=== PATIENT | male | born 1925 | race Caucasian/White ===

== ENCOUNTER → 2016-10-12 | Outpatient (CLI) | payer MEDICARE ==
--- NOTE | 2016-10-12 10:10 | MRI ---
EXAM DESCRIPTION: Lumbar Spine w/o Contrast CLINICAL HISTORY: LUMBAR RADICULOPATHY bilateral leg pain and numbness COMPARISON: Lumbar spine dated 26 January 2016 TECHNIQUE: Multi plantar multi sequence non contrast imaging. FINDINGS: There is good alignment of the lumbar spine. An old compression fracture of T12 is observed. A large simple cyst is observed in the lateral aspect of the right kidney. L1-2: Unremarkable. L2-3: Unremarkable. L3-4: Facet joint arthritis is observed. No disc bulge or disc herniation is seen. Mild right neural foraminal narrowing is observed. L4-5: No disc bulge or disc herniation is seen. Facet joint arthritis and hypertrophy are are observed. There is mild bilateral neural foraminal narrowing. Some posterior ligamentous hypertrophy is observed resulting in a mild spinal stenosis. L5-S1: The disc is desiccated. No significant disc bulge or disc herniation is seen. Mild facet joint arthritis and hypertrophy are observed with minimal bilateral neural foraminal encroachment. IMPRESSION: 1. 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 There is also some posterior ligamentous hypertrophy resulting in a mild spinal stenosis.. 2. Facet joint arthritis is observed at the L3-4 and L5-S1 levels with mild neural foraminal encroachment. Electronically signed by: Bandar Valdes MD 10/12/2016 10:09 AM CDT Workstation: [employer]
== END ==
LOC: MRI 07:57
PROVIDERS: ATTEND Orthopaedic Surgery
DX: M54.16 Radiculopathy, lumbar region (principal); M46.86 Other specified inflammatory spondylopathies, lumbar region

== ENCOUNTER → 2016-12-06 | Outpatient (CLI) | payer MEDICARE ==
--- NOTE | 2016-12-06 16:29 | CT ---
EXAM DESCRIPTION: Head CLINICAL HISTORY: 89 years, Male, AMS COMPARISON: None. FINDINGS: Unenhanced images through the brain. This examination was performed according to our departmental dose optimization program, which includes automatic exposure control, adjustment of the MA and/or kV according to the patient size and/or use of iterative reconstruction technique. No intracranial hemorrhage or mass. Patient has bilateral craniotomy defects. There are scattered areas of low-attenuation bilaterally particularly on the right low convexity frontal temporal areas. These are probably chronic. Enlarged ventricles with moderate microischemic changes periventricular white matter. Mild ethmoid sinus mucosal thickening. IMPRESSION: 1. No intracranial hemorrhage or mass. No definite acute abnormality identified 2. Scattered bilateral areas of encephalomalacia more on the right. These appear to be associated regions prior craniotomy. Correlation recommended with possible MRI study for more detailed characterization, if indicated 3. Extensive microischemic changes periventricular white matter Electronically signed by: Flaco Matta MD 12/06/2016 4:28 PM CDT
--- NOTE | 2016-12-07 08:08 | RAD ---
EXAM DESCRIPTION: Elbow,Left 2 Views CLINICAL HISTORY: 89 years Male, PAIN IN LEFT ELBOW COMPARISON: None. FINDINGS: 3 views of the left elbow show extensive postoperative changes in the left humerus distally without loosening or other hardware complication. There is no acute fracture or malalignment. Is an old healed distal humeral fracture and possibly also an old healed proximal left radial fracture. No acute fracture or malalignment. Olecranon spurring is noted in the insertion site of the triceps tendon with a suture anchor at the same location. IMPRESSION: Postoperative, degenerative and posttraumatic changes, but no acute left elbow abnormality. Electronically signed by: Ashish Johansen MD 12/07/2016 8:07 AM CDT Workstation: [facility]ICOShareholder InSiteAUGUST[facility]
--- NOTE | 2016-12-07 08:09 | RAD ---
EXAM DESCRIPTION: Shoulder,Right 2 or More Views CLINICAL HISTORY: 89 years Male, PAIN IN RIGHT SHOULDER COMPARISON: None. FINDINGS: 2 views of the right shoulder show postoperative changes related previous reverse right shoulder arthroplasty. No loosening or other hardware complication. No acute fracture or malalignment. The soft tissues are unremarkable. IMPRESSION: Uncomplicated postoperative changes, otherwise unremarkable exam. Electronically signed by: Ashish Johansen MD 12/07/2016 8:08 AM CDT Workstation: [email or web address]
--- NOTE | 2016-12-07 08:10 | RAD ---
EXAM DESCRIPTION: Sacrum Coccyx CLINICAL HISTORY: 89 years Male, OTHER SPECIFIED DORSOPATHIES, LUMBOSACRAL COMPARISON: None. FINDINGS: 3 views of the sacrum and coccyx show generalized bony demineralization without displaced sacral or coccygeal fracture. There are degenerative changes in the lumbar spine at several levels. The sacroiliac joint spaces are fairly well-maintained. Vascular calcifications are noted. IMPRESSION: Generalized bony demineralization, degenerative changes and vascular calcifications, but no acute abnormality. Electronically signed by: Ashish Johansen MD 12/07/2016 8:09 AM CDT Workstation: [facility]
== END | disposition home or self-care (01) ==
LOC: CT 15:04
PROVIDERS: ATTEND Family Medicine
DX: R41.82 Altered mental status, unspecified (principal); R41.9 Unspecified symptoms and signs involving cognitive functions and awareness

== ENCOUNTER 2016-12-26 14:27 | Emergency (ER) | payer MEDICARE ==
[2016-12-26] MEDS ORDERED: LIDOCAINE 2 % GEL 5 ML TUBE TOP ONE (14:44)
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
--- NOTE | 2016-12-26 16:05 | RAD ---
EXAM: Two view(s) of the right shoulder. INDICATION: Pain. COMPARISON: None. FINDINGS: No acute fracture or dislocation. There are changes of a right shoulder arthroplasty with no periprosthetic lucencies. No large soft tissue swelling. IMPRESSION: 1. No acute fracture. Electronically signed by: Doug Lott MD 12/26/2016 4:03 PM CDT Workstation: [employer]
--- NOTE | 2016-12-26 16:05 | RAD ---
EXAM: Two view(s) of the left shoulder. INDICATION: Pain. COMPARISON: None. FINDINGS: No acute fracture or dislocation. There is an old healed fracture involving the proximal humerus. Old healed left-sided rib fractures are noted. There are calcifications around the humeral head, likely related to rotator cuff tendinopathy. No large soft tissue swelling. IMPRESSION: 1. No acute fracture. Electronically signed by: Doug Lott MD 12/26/2016 4:03 PM CDT Workstation: [employer]
--- NOTE | 2016-12-26 16:14 | CT ---
EXAM: CT head without contrast. INDICATION: Head injury. TECHNIQUE: Contiguous axial CT images of the brain. Intravenous contrast: Absent. DLP 870 mGy-cm. This exam was performed according to our departmental dose-optimization program, which includes automated exposure control, adjustment of the mA and/or kV according to patient size and/or use of iterative reconstruction technique. COMPARISON: 12/06/2016. FINDINGS: Since the previous examination, there has been cortical hemorrhage along the right parietal subacute infarct. There are chronic infarcts involving the bifrontal lobes, scott radiata, and right cerebellum. There is no midline shift, herniation, hydrocephalus, or extra-axial fluid collection. The paranasal sinuses and mastoid air cells are clear. There is an acute fracture IMPRESSION: Cortical hemorrhage along a right parietal subacute infarct. No midline shift, herniation, or hydrocephalus Electronically signed by: Doug Lott MD 12/26/2016 4:12 PM CDT Workstation: [id number]
[2016-12-26] MEDS ORDERED: TETANUS,DIPHTHERIA,PERTUSSIS 1 EA SYG IM ONE ×2 (17:07→18:54)
[2016-12-26] MEDS ORDERED: fentaNYL CITRATE INJ 50 MCG/ML AMP IV ONE (17:52)
[2016-12-26 19:31] VITALS: BP 182/74; TEMP 97.1; O2SAT 97
== END 2016-12-26 19:25 | disposition short-term general hospital (02) ==
LOC: ER 14:27
DX: S01.01XA Laceration without foreign body of scalp, initial encounter (principal); I63.9 Cerebral infarction, unspecified; Z88.6 Allergy status to analgesic agent; Z88.8 Allergy status to other drugs, medicaments and biological substances; J44.9 Chronic obstructive pulmonary disease, unspecified; I10 Essential (primary) hypertension; Z23 Encounter for immunization; Z87.891 Personal history of nicotine dependence; V86.59XA Driver of other special all-terrain or other off-road motor vehicle injured in nontraffic accident, initial encounter; Y92.015 Private garage of single-family (private) house as the place of occurrence of the external cause
CPT/HCPCS: 36415; 70450; 73030; 80053; 85025; 85610; 90471; 93005; J3010

== ENCOUNTER 2017-01-25 11:42 | Observation (INO) | payer MEDICARE ==
[2017-01-25] MEDS ORDERED: SODIUM PHOS/BIPHOS ENEMA ADULT 133 ML BTTL PR ONE (12:33)
[2017-01-25] MEDS ORDERED: BISACODYL SUPPOSITORY 10 MG PR ONE ×3 (12:35→14:10)
[2017-01-25] MEDS ORDERED: DOCUSATE SODIUM 100 MG CAP PO ONE (12:35)
[2017-01-25] MEDS ORDERED: PEG-ELECTROLYTE 4,000 ML BTTL PO SCH (13:00)
--- NOTE | 2017-01-25 13:09 | RAD ---
EXAM DESCRIPTION: Abdomen 1 View CLINICAL HISTORY: CONSTIPATION COMPARISON: None FINDINGS: Single frontal view the abdomen. Moderate amount of formed stool is demonstrated within the rectal colon/rectal vault. No other significant amount of formed stool is demonstrated throughout the colon. Bowel gas pattern is nonobstructive. No gross free intraperitoneal gas. No organomegaly is discernible. Osteopenia/osteoporosis. IMPRESSION: Mild constipation. Electronically signed by: Michel Hemphill MD 01/25/2017 1:08 PM CDT
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
[2017-01-25] MEDS ORDERED: SODIUM CHLORIDE 0.9% (FLUSH) 10 ML SYG IV PRN (20:56)
[2017-01-25] MEDS ORDERED: ALBUTEROL SULFATE 2.5 MG/3 ML VIAL NEB PRN (20:57)
[2017-01-25] MEDS ORDERED: ACETAMINOPHEN 325 MG TAB PO PRN (20:57)
[2017-01-25] MEDS ORDERED: ONDANSETRON INJ 4 MG/2 ML VIAL IV PRN (20:57)
[2017-01-25] MEDS ORDERED: IV SET AND CAP CHANGE INJ INJ SCH (21:00)
[2017-01-25] MEDS ORDERED: NON-FORMULARY MEDICATION 1 EA MIS (Pravastatin Sodium [Pravachol] 40 MG) PO SCH (21:00)
[2017-01-25] MEDS ORDERED: PRAVASTATIN SODIUM 20 MG TAB ONE (21:14)
[2017-01-25] MEDS: traMADol HCL 50 MG TAB PO PRN (21:23)
[2017-01-25] MEDS: ALPRAZolam 0.5 MG TAB PO SCH (21:23)
[2017-01-25] MEDS: DOCUSATE SODIUM 100 MG CAP PO SCH (21:23)
[2017-01-25] MEDS: SODIUM CHLORIDE 0.9% (FLUSH) 10 ML SYG IV SCH (21:26)
[2017-01-25] MEDS ORDERED: PANTOPRAZOLE SODIUM IV 40 MG VIAL IV SCH (21:30)
[2017-01-25] MEDS: SODIUM CHLORIDE 0.9% 1000ML 1,000 ML IVS PRN (21:34)
[2017-01-25] MEDS ORDERED: PYRETHRINS-PIPERONYL BUTOXIDE 1 APPLIC BTTL TOP ONE (22:33)
[2017-01-26] MEDS ORDERED: LISINOPRIL 10 MG TAB ONE (07:20)
[2017-01-26] MEDS: ALBUTEROL SULFATE 2.5 MG/3 ML VIAL NEB SCH ×4 (09:02→19:56)
[2017-01-26] MEDS: amLODIPine BESYLATE 5 MG TAB PO SCH (09:13)
[2017-01-26] MEDS: DOCUSATE SODIUM 100 MG CAP PO SCH ×2 (09:13→20:20)
[2017-01-26] MEDS: LISINOPRIL 10 MG TAB PO SCH (09:13)
[2017-01-26] MEDS: SODIUM CHLORIDE 0.9% (FLUSH) 10 ML SYG IV SCH ×2 (09:14→20:21)
[2017-01-26] MEDS: SODIUM CHLORIDE 0.9% 1000ML 1,000 ML IVS PRN (12:33)
[2017-01-26] MEDS: traMADol HCL 50 MG TAB PO PRN ×2 (19:29→21:54)
[2017-01-26] MEDS: ALPRAZolam 0.5 MG TAB PO SCH (20:20)
[2017-01-26] MEDS ORDERED: PANTOPRAZOLE SODIUM IV 40 MG VIAL IV SCH (21:00)
[2017-01-26] MEDS ORDERED: PRAVASTATIN SODIUM 20 MG TAB PO SCH (21:00)
--- NOTE | 2017-01-26 21:46 | PN ---
DATE: 01/26/17 SUPERVISING PHYSICIAN: Richard Marsh M.D. SUBJECTIVE: The patient is sitting up on the side of his bed. He says that he has had multiple bowel movements but they stopped earlier today and he feels like he is "cleaned out." He does not feel much like eating, but he has no complaints of chest pain, shortness of breath, nausea or vomiting. It was reported that the patient had some bugs crawling on him last night and he was given a Permethrin bath. Under examination of the bugs, it looked like they were some sort of gnat and no bugs were reportedly seen today in the patient's room. OBJECTIVE: VITAL SIGNS: He is afebrile, heart rate 78, blood pressure 121/61, respiratory rate 17, O2 sat is 90%. RESPIRATORY: Essentially clear to auscultation bilaterally. CARDIAC: Regular rate and rhythm. ABDOMEN: Soft, nondistended, non-tender. Bowel sounds are positive. EXTREMITIES: No cyanosis , clubbing or edema. NEUROLOGIC: He is awake, alert and oriented times three. LABORATORY: WBCs 6.8, hemoglobin 10.7, hematocrit 32.1. Chemistries are basically within normal limits. His second stool occult blood was negative. All other labs and films have been reviewed via the EMR. ASSESSMENT: 1. Weakness most likely secondary to prolonged hospitalization and poor fluid and nutritional intake. 2. Constipation most likely due to opioid use. 3. Mild anemia. His stool for occult blood was positive in the Emergency Room but that was after he had had enemas and several laxatives, and he was extremely constipated. His second stool for occult blood was negative and his H&H has stabilized. 4. Chronic obstructive pulmonary disease. 5. Hypertension. 6. History of multiple cerebrovascular accidents. PLAN: We will continue the present supportive care. Hopefully he can be discharged tomorrow. I will recheck an abdominal x-ray tomorrow. I think he had a good stool clean out yesterday. 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 He does have some people to check on him. He has not had any of his Oxycodone since he has been in the hospital. He has been on Tramadol and he has no complaints of pain as the Tramadol seems to be controlling it. Most of his constipation was most likely from the opioid use and if he has to go back on a narcotic, he may benefit from a stool softener or something for chronic opioid-induced constipation. I am not going to restart his Oxycodone when he is discharged. I will get him a close followup with Dr. Yanes. I will check an H&H in the morning. Otherwise we will continue to monitor the patient closely and followup as needed. Dr. Marsh is the collaborating physician available for consultation. [facility][id number] [facility]
--- NOTE | 2017-01-27 07:13 | RAD ---
EXAM DESCRIPTION: Abdomen Flat Upright CLINICAL HISTORY: 89 years Male, constipation COMPARISON: None. FINDINGS: The lung bases are unremarkable. No free subdiaphragmatic gas or intra-abdominal air-fluid level. Moderate amount of colonic stool and gas. Vascular calcifications are noted in the abdomen and pelvis. Several small calcifications project over the left kidney. There are degenerative changes in the lumbar spine at several levels. Postoperative changes in the right femur are only partially visualized. IMPRESSION: Moderate amount colonic stool and gas, but no small bowel obstruction, pneumoperitoneum or other acute intra-abdominal abnormality. Small calcifications projecting over the left kidney, differential considerations include superimposed vascular calcifications or left-sided nephrolithiasis. Electronically signed by: Ashish Johansen MD 01/27/2017 7:12 AM CDT
[2017-01-27] MEDS: amLODIPine BESYLATE 5 MG TAB PO SCH (08:45)
[2017-01-27] MEDS: LISINOPRIL 10 MG TAB PO SCH (08:45)
[2017-01-27] MEDS: DOCUSATE SODIUM 100 MG CAP PO SCH (08:45)
[2017-01-27] MEDS: SODIUM CHLORIDE 0.9% (FLUSH) 10 ML SYG IV SCH (08:45)
[2017-01-27] MEDS: ALBUTEROL SULFATE 2.5 MG/3 ML VIAL NEB SCH (08:49)
[2017-01-27] MEDS: traMADol HCL 50 MG TAB PO PRN ×2 (08:52→11:42)
[2017-01-27 11:09] VITALS: O2SAT 97
[2017-01-27 11:36] VITALS: BP 121/71; TEMP 98.2
--- NOTE | 2017-01-27 13:56 | DS ---
SUPERVISING PHYSICIAN: Richard Marsh MD DISCHARGE DIAGNOSIS: 1. Weakness most likely secondary to prolonged hospitalization and poor fluid and nutritional intake. 2. Constipation most likely due to opioid use. 3. Mild anemia. His stool for occult blood was positive in the Emergency Room but that was after he had had enemas and several laxatives, and he was extremely constipated. His second stool for occult blood was negative and his H&H has stabilized. 4. Chronic obstructive pulmonary disease. 5. Hypertension. 6. History of multiple cerebrovascular accidents. HISTORY OF PRESENT ILLNESS: This is an 89-year-old male patient who was seen in the Emergency Room due to 5 to 7 days of increased weakness. About one month ago, the patient was sent to [facility] for cerebrovascular accident and was in [facility] for approximately two weeks and then he went to [facility]. He just recently returned home and over the last few days, he has just had increasing problems with weakness that has just progressively worsened. He is on pain medications and he has also had progressive problems with constipation. His son reported that he has just gotten weaker and weaker over the last few days. There were no neurological changes, but he just got to the point where he could not even get out of bed. 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 In the Emergency Room, he was found to be significantly constipated and was given an enema as well as some IV fluids and some other laxatives. He did have a bowel movement in the Emergency Room which was tested and found to be guaiac-positive. His labs showed him to be mildly anemia with a hemoglobin of 11.6 and hematocrit 34.6, WBC 8.9. Chemistries were basically within normal limits. His abdominal x-ray per radiologic interpretation showed some constipation and due to his increasing weakness as well as fairly significant constipation, I was called to admit the patient for observation. HOSPITAL COURSE: After the patient was admitted for observation, his constipation resolved. His abdominal x-ray this morning per radiologic interpretation continues to show a moderate amount of colonic stool and gas, but no small bowel obstruction, pneumoperitoneum or other acute intraabdominal abnormalities. His vital signs have been stable and he has been afebrile. His lab studies show a stable hemoglobin and hematocrit of 10.2 and 30.5 this morning. He had initial stool occult blood that was positive in the Emergency Room, but he was given aggressive clean-out and his subsequent stool for occult blood was negative. He was evaluated by physical therapy and was felt safe to go home. We did not resume his oxycodone in the hospital because that may have contributed to his constipation. He was given Tramadol and Tramadol was effective for pain relief for him. He is to be discharged home in stable condition. DISCHARGE PLAN: The patient will be discharged home in stable condition. He is to discontinue his oxycodone and I have given him a prescription for Tramadol. I have also given him a small supply of Xanax as he was to have an appointment with Dr. Yanes several days ago to get his Xanax refilled and he will not see Dr. Yanes until 02/02/17 at 10 AM. He may benefit from aggressive treatment for his chronic constipation. As for now, I have told him to take several doses of Milk of Magnesia over the next couple of days. He is to return to the hospital or call Dr. Yanes's office for any further complications or problems. DISCHARGE MEDICATIONS: 1. Lisinopril. 2. Pravastatin. 3. Amlodipine. 4. Milk of Magnesia. 5. Tramadol. 6. Alprazolam. Dr. Marsh is the collaborating physician and available for consultation. #[id number] [facility]
[2017-01-27] MEDS ORDERED: PANTOPRAZOLE SODIUM TAB 40 MG PO SCH (16:30)
[2017-01-27] MEDS ORDERED: SODIUM CHLORIDE 0.9% (FLUSH) 10 ML SYG IV SCH (21:00)
== END 2017-01-27 12:30 | disposition home health service (06) ==
LOC: ER 11:42 → MS 15:20
PROVIDERS: ADMIT Nurse Practitioner Acute Care; ATTEND Nurse Practitioner Acute Care
DX: R53.1 Weakness (principal); K59.00 Constipation, unspecified; D64.9 Anemia, unspecified; J44.9 Chronic obstructive pulmonary disease, unspecified; I10 Essential (primary) hypertension; H35.30 Unspecified macular degeneration; Z86.73 Personal history of transient ischemic attack (TIA), and cerebral infarction without residual deficits; Z79.891 Long term (current) use of opiate analgesic; Z79.899 Other long term (current) drug therapy; Z88.6 Allergy status to analgesic agent; Z91.048 Other nonmedicinal substance allergy status; Z90.49 Acquired absence of other specified parts of digestive tract; Z98.42 Cataract extraction status, left eye; Z98.41 Cataract extraction status, right eye
CPT/HCPCS: 36415 ×4; 74000; 74010; 80048 ×2; 80053; 81001; 82270 ×2; 85014; 85018; 85025 ×2; 94640 ×5; 94760 ×7; 96361 ×2; 96374; 96376; 97162; 97530; 99284; G0378; G8978; G8979; G8980; J7030 ×2; J7611 ×5

== ENCOUNTER 2017-01-31 00:35 | Inpatient (IN) | payer MEDICARE ==
[2017-01-31] MEDS ORDERED: IPRATROPIUM/ALBUTEROL 3 ML VIAL NEB ONE ×2 (00:38→00:59)
--- NOTE | 2017-01-31 00:48 | ED.PDOC ---
History of Present Illness - General Chief Complaint: Respiratory Problem Stated Complaint: Shortness of breath Time Seen by Provider: 01/31/17 00:47 Source: patient, Vital Signs reviewed, EMS notes reviewed Exam Limitations: no limitations - History of Present Illness Initial Comments: Siva Beckwith 89 y/o male brought by ems after they were called by his daughter with sob/wheezing/lower backpain.On ems arrival was found laying in bed was given oxygen /nasal cannula and b-agonist nebulizer treatment.On his arrival at [facility] -er has audible wheezing in mild respiratory distress with oxygen saturation at 98% on non rebreather 02 then was given duoneb by nebulizer.He stated that vhe has history of copd in the past but not on maintenance medication Timing/Duration: 1-3 hours Severity: moderate Activities at Onset: none Possible Cause: occasional episodes Worsening Factors: nothing Associated Symptoms: pain - back, wheezing Respiratory Risk Factors: other - copd Allergies/Adverse Reactions: Allergies Codeine Allergy (Verified 01/31/17 00:42) Iodine Adverse Reaction (Verified 01/31/17 00:42) Other Causes itching Home Medications: Ambulatory Orders Lisinopril 20 mg PO DAILY #90 tab 01/23/14 Magnesium Hydroxide [Milk Of Magnesia] 30 ml PO Q8HR PRN 01/25/17 Pravastatin Sodium [Pravachol] 40 mg PO BEDTIME 01/25/17 amLODIPine BESYLATE [Norvasc] 5 mg PO DAILY 01/25/17 ALPRAZolam [Xanax] 0.5 mg PO BEDTIME #10 tab 01/27/17 Tramadol HCl 50 - 100 mg PO Q6H #20 tab 01/27/17 Review of Systems - Review of Systems Constitutional: States: no symptoms reported EENTM: States: no symptoms reported Respiratory: States: see HPI Cardiology: States: no symptoms reported Gastrointestinal/Abdominal: States: no symptoms reported Musculoskeletal: States: no symptoms reported Skin: States: no symptoms reported Neurological: States: no symptoms reported Past Medical History (General) - Patient Medical History Hx Seizures: No Hx Stroke: Yes Hx Dementia: No Hx Asthma: No Hx of COPD: Yes 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 Hx Congestive Heart Failure: No Hx Pacemaker: No Hx Hypertension: Yes Hx Thyroid Disease: No Hx Diabetes: No Hx Gastroesophageal Reflux: No Hx Renal Disease: No Hx Cancer: No Hx of HIV: No Hx Hepatitis C: No Hx MRSA: No Surgical History: other - shoulder - Vaccination History Hx Tetanus, Diphtheria Vaccination: Yes Hx Influenza Vaccination: No Hx Pneumococcal Vaccination: No - Social History Hx Tobacco Use: No Hx Chewing Tobacco Use: No Hx Alcohol Use: No Hx Substance Use: No Hx Substance Use Treatment: No Hx Depression: No Hx Physical Abuse: No Hx Emotional Abuse: No Hx Suspected Abuse: No - Activities of Daily Living Patient Lives Alone: Yes Eating (Feeding) Ability: Independent Toileting Ability: Independent - Female History Patient : No Family Medical History - Family History Mother Living Status: Hx Family Hypertension: Yes Father Living Status: Hx Family Cancer: Yes - leukemia Physical Exam - Physical Exam General Appearance: Alert, Obvious distress - mild Eyes, Ears, Nose, Throat Exam: normal ENT inspection, TMs normal, other - 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 Neck: non-tender, supple Respiratory: chest non-tender, no accessory muscle use, decreased breath sounds , wheezing Cardiovascular/Chest: regular rate, rhythm, no murmur Peripheral Pulses: radial,right: 2+, radial,left: 2+ Gastrointestinal/Abdominal: non tender, soft, no organomegaly Neurologic: no motor/sensory deficits, alert Skin Exam: normal color, warm/dry Progress - Progress Progress: 01/31/17 01:23 Vital Signs 01/31/17 01/31/17 00:43 00:46 Temperature 98.9 F Pulse Rate 94 H Pulse Rate [ 100 H Left Radial] Respiratory 32 H 23 Rate Blood Pressure 157/70 [Left Arm] O2 Sat by Pulse 94 L 97 Oximetry - Results/Orders Results/Orders: Laboratory Tests 01/31/17 01/31/17 01/31/17 01:25 01:25 01:25 WBC 8.5 RBC 4.40 L Hgb 12.1 L Hct 35.8 L MCV 81.3 MCH 27.5 MCHC 33.8 RDW 14.8 H Plt Count 182 MPV 8.0 Absolute Neuts (auto) 6.10 Absolute Lymphs (auto) 1.30 Absolute Monos (auto) 0.90 H Absolute Eos (auto) 0.20 Absolute Basos (auto) 0.00 Neutrophils % 71.5 Lymphocytes % 15.1 L Monocytes % 10.7 H Eosinophils % 2.4 Basophils % 0.3 Sodium 135 Potassium 4.1 Chloride 101 Carbon Dioxide 26 Anion Gap 12.1 BUN 13 Creatinine 0.92 BUN/Creatinine Ratio 14.1 Random Glucose 129 H Serum Osmolality 271.9 L Calcium 9.7 Total Bilirubin 0.4 AST 19 ALT 16 Alkaline Phosphatase 44 Troponin I < 0.02 B-Natriuretic Peptide Serum Total Protein 7.1 Albumin 4.3 Globulin 2.8 Albumin/Globulin Ratio 1.5 01/31/17 01:25 WBC RBC Hgb Hct MCV MCH MCHC RDW Plt Count MPV Absolute Neuts (auto) Absolute Lymphs (auto) Absolute Monos (auto) Absolute Eos (auto) Absolute Basos (auto) Neutrophils % Lymphocytes % Monocytes % Eosinophils % Basophils % Sodium Potassium Chloride Carbon Dioxide Anion Gap BUN Creatinine BUN/Creatinine Ratio Random Glucose Serum Osmolality Calcium Total Bilirubin AST ALT Alkaline Phosphatase Troponin I B-Natriuretic Peptide 53.2 Serum Total Protein Albumin Globulin Albumin/Globulin Ratio - EKG/XRAY/CT EKG: Sinus, no ST T wave changes Comments: heart rate 92 first degree av block XRAY: chest - no acute abnormalities Departure - Departure Clinical Impression: COPD exacerbation Time of Disposition: 02:21 Disposition: Admit Patient Departure Forms: Patient Portal Self Enrollment Referrals: Nadir Yanes MD [Primary Care Provider] - 1-2 Weeks Home Medications: Ambulatory Orders Lisinopril 20 mg PO DAILY #90 tab 01/23/14 Magnesium Hydroxide [Milk Of Magnesia] 30 ml PO Q8HR PRN 01/25/17 Pravastatin Sodium [Pravachol] 40 mg PO BEDTIME 01/25/17 amLODIPine BESYLATE [Norvasc] 5 mg PO DAILY 01/25/17 ALPRAZolam [Xanax] 0.5 mg PO BEDTIME #10 tab 01/27/17 Tramadol HCl 50 - 100 mg PO Q6H #20 tab 01/27/17 Decision To Admit - Decistion To Admit Decision to Admit Reason: Admit from ER Decision to Admit Date: 01/31/17 Decision to Admit Time: 02:18 - D/W Feli Christensen-ANP/Hospitalist
[2017-01-31] MEDS ORDERED: methylPREDNISolone SODIUM SUC 125 MG/2 ML VIAL IV ONE (00:56)
--- NOTE | 2017-01-31 01:24 | RAD ---
Clinical History : sob , MAIN Exam : Portable AP view of the chest 01/31/2017 12:53 AM CDT Comparisons : none Findings : The lungs are clear without focal consolidation or pleural effusion. The heart is normal in size. The mediastinal contours are distorted by patient rotation to the left . There are vascular calcifications along the aortic arch. The thoracic spine is age appropriate. There is right shoulder arthroplasty hardware.. There is a chronic left proximal humeral fracture. Limited evaluation of the upper abdomen demonstrates no gross abnormalities. Impression: Rotated exam, otherwise no acute cardiopulmonary disease. Electronically signed by: Sharonda Pickett MD 01/31/2017 1:23 AM CDT
[2017-01-31] MEDS: SODIUM CHLORIDE 0.9% 500ML 500 ML IVS PRN ×3 (01:34→16:04)
[2017-01-31] MEDS ORDERED: cefTRIAXone SODIUM 1 GM in SODIUM CHL 0.9% 50ML MIN-BAG+ 50 ML IVPB ONE (02:19)
[2017-01-31] MEDS ORDERED: SODIUM CHL 0.9% 50ML MIN-BAG+ 50 ML IVPB ONE (02:34)
[2017-01-31] MEDS ORDERED: cefTRIAXone SODIUM 1 GM VIAL ONE (02:34)
--- NOTE | 2017-01-31 02:58 | HP ---
SUPERVISING PHYSICIAN: Amilcar Casillas MD CHIEF COMPLAINT: Shortness of breath. HISTORY OF PRESENT ILLNESS: This is an 89-year-old male patient who has had some shortness of breath, coughing and upper respiratory like symptoms for at least 24 hours. He became so short of breath yesterday that he called EMS and they brought him to the Emergency Room. In the Emergency Room, he had audible wheezing and he was in respiratory distress. It was reported that his oxygen saturation had dropped as low as the mid-70s. He was given multiple breathing treatments and he does have a significant history of chronic obstructive pulmonary disease. He was actually in the hospital last week for constipation and some lower back pain as well as weakness. In the Emergency Room, his chest x-ray per radiologic interpretation showed rotated exam, otherwise no acute cardiopulmonary disease. His laboratory showed chemistries basically within normal limits with the exception of his glucose was high at 129, serum osmolality low at 271.9, troponin was negative. White count was 8.5 with hemoglobin 12.1 and hematocrit 35.8. Blood gas had a normal pH of 7.41 with bicarb 23.2, PO2 61, PCO2 38 with O2 saturation 94%. UA was basically within normal limits. He also complained of quite a bit of purulent sputum and he did give enough sputum for a culture. He was given steroids as well as Rocephin. I was called for hospital admission. PAST MEDICAL HISTORY: 1. Multiple concussions due to head trauma. 2. 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 3. Hypertension. 4. Chronic obstructive pulmonary disease. 5. Back pain. 6. Chronic constipation. 7. History of previous cerebrovascular accidents. 8. Chronic headaches due to number 1. PAST SURGICAL HISTORY: 1. Multiple bur holes due to head injuries. 2. Appendectomy. 3. Tonsillectomy and adenoidectomy. 4. Bilateral cataract removal. 5. Bilateral total knee arthroplasty. 6. Right shoulder replacement. 7. Right wrist surgery due to fracture. 8. Colonoscopy. CURRENT MEDICATIONS: Per the EMR and awaiting verification. ALLERGIES: CODEINE, IODINE. SOCIAL HISTORY: He is retired. He lives at [facility]. He denies any tobacco use. He occasionally drinks beer on a social basis only. He denies any illicit drug use. REVIEW OF SYSTEMS: GENERAL: Negative for fatigue, fever or weight changes. HEENT: Positive for blindness. Negative for sinus symptoms, ear pain or sore throat. RESPIRATORY: Positive for wheezing, coughing or shortness of breath. CARDIAC: Negative for chest pain, palpitations or tachycardia. GASTROINTESTINAL: Negative for constipation, abdominal pain. Negative for nausea, vomiting, diarrhea. GENITOURINARY: Negative for hematuria, dysuria or nocturia. NEUROLOGIC: Positive for chronic headaches. Negative for weakness, dizziness or seizures. PHYSICAL EXAMINATION: VITAL SIGNS: Afebrile. Heart rate 91. Blood pressure 126/65. Respiratory rate got as high as 32, but is now 18. O2 saturation 91%. GENERAL: This is an 89-year-old male patient who is lying in his hospital bed. He is in no acute distress. HEENT: Normocephalic, atraumatic. Oropharynx is clear. NECK: Supple without mass. RESPIRATORY: Scattered rhonchi throughout, somewhat diminished at the bases. He gets slightly tachypneic at times. CHEST: There is equal rise and fall of the chest with inspiration and expiration. CARDIOVASCULAR: Regular rate and rhythm. ABDOMEN: Soft, nondistended, nontender. Bowel sounds are positive. EXTREMITIES: No cyanosis, clubbing or edema. NEUROLOGIC: Awake, alert and oriented times three. LABORATORY: Labs and films are as per the history of present illness. ASSESSMENT: 1. Acute exacerbation of chronic obstructive pulmonary disease. 2. Hypoxia as noted on arterial blood gases with PO2 of 61. 3. History of chronic constipation. 4. Mild anemia. 5. Chronic obstructive pulmonary disease. 6. Hypertension. 7. History of multiple cerebrovascular accidents. 8. History of chronic headaches due to multiple head traumas in the past. PLAN: We will place the patient in observation. He will continue with his Rocephin as well as we will start azithromycin. Breathing treatments have been initiated. Good pulmonary hygiene has been ordered. I have ordered cultures on his blood, sputum and he also has a gram stain on his sputum. I have ordered Protonix for ulcer prophylaxis as well as Lovenox for DVT prophylaxis. Hopefully he can be discharged in the next day or two. Meanwhile, we will continue to monitor the patient closely and follow as needed. Dr. Casillas is the collaborating physician and available for consultation. #[id number] [facility]
[2017-01-31] MEDS ORDERED: traMADol HCL 50 MG TAB PO PRN (05:13)
[2017-01-31] MEDS ORDERED: ALBUTEROL SULFATE 2.5 MG/3 ML VIAL NEB PRN (05:20)
[2017-01-31] MEDS ORDERED: ENOXAPARIN SODIUM 40 MG/0.4 ML SYG SUBCU SCH (05:30)
[2017-01-31] MEDS: IV SET AND CAP CHANGE INJ INJ SCH (05:30)
[2017-01-31] MEDS ORDERED: SODIUM CHLORIDE 0.9% 250ML 250 ML ONE (05:34)
[2017-01-31] MEDS ORDERED: AZITHROMYCIN IV 500 MG VIAL IVPB ONE (05:35)
[2017-01-31] MEDS: AZITHROMYCIN IV 500 MG in SODIUM CHLORIDE 0.9% 250ML 250 ML IVPB SCH (05:49)
[2017-01-31] MEDS: traMADol HCL 50 MG TAB PO PRN ×4 (05:54→20:04)
[2017-01-31] MEDS ORDERED: PANTOPRAZOLE SODIUM IV 40 MG VIAL IV SCH (06:30)
[2017-01-31] MEDS: LISINOPRIL 10 MG TAB PO SCH (08:42)
[2017-01-31] MEDS: amLODIPine BESYLATE 5 MG TAB PO SCH (08:42)
[2017-01-31] MEDS: methylPREDNISolone SODIUM SUC 125 MG/2 ML VIAL IV SCH ×2 (08:42→16:03)
[2017-01-31] MEDS: IPRATROPIUM/ALBUTEROL 3 ML VIAL INH SCH ×4 (08:55→20:39)
[2017-01-31] MEDS ORDERED: PRAVASTATIN SODIUM 20 MG TAB ONE (19:50)
[2017-01-31] MEDS ORDERED: ALPRAZolam 0.5 MG TAB ONE (19:50)
[2017-01-31] MEDS: ALPRAZolam 0.5 MG TAB PO SCH (21:26)
[2017-01-31] MEDS: PRAVASTATIN SODIUM 20 MG TAB PO SCH (21:26)
[2017-02-01] MEDS ORDERED: SODIUM CHL 0.9% 50ML MIN-BAG+ 50 ML IVPB ONE (01:23)
[2017-02-01] MEDS ORDERED: cefTRIAXone SODIUM 1 GM VIAL ONE (01:23)
[2017-02-01] MEDS ORDERED: SODIUM CHLORIDE 0.9% 250ML 250 ML ONE (01:23)
[2017-02-01] MEDS ORDERED: PANTOPRAZOLE SODIUM TAB 40 MG PO ONE (01:23)
[2017-02-01] MEDS ORDERED: AZITHROMYCIN IV 500 MG VIAL IVPB ONE (01:24)
[2017-02-01] MEDS: SODIUM CHLORIDE 0.9% (FLUSH) 10 ML SYG IV PRN ×2 (01:29→05:43)
[2017-02-01] MEDS: cefTRIAXone SODIUM 1 GM in SODIUM CHL 0.9% 50ML MIN-BAG+ 50 ML IVPB SCH (01:30)
[2017-02-01] MEDS: methylPREDNISolone SODIUM SUC 125 MG/2 ML VIAL IV SCH ×3 (01:30→20:28)
[2017-02-01] MEDS: traMADol HCL 50 MG TAB PO PRN ×3 (03:32→16:25)
[2017-02-01] MEDS: AZITHROMYCIN IV 500 MG in SODIUM CHLORIDE 0.9% 250ML 250 ML IVPB SCH (05:42)
[2017-02-01] MEDS: PANTOPRAZOLE SODIUM TAB 40 MG PO SCH (05:42)
--- NOTE | 2017-02-01 07:04 | RAD ---
EXAM DESCRIPTION: Chest,2 Views CLINICAL HISTORY: copd COMPARISON: January 31, 2017 FINDINGS: The cardiomediastinal silhouette is unremarkable. Mild blunting of the right costophrenic angle suggests a tiny right-sided pleural effusion. No airspace consolidation or left-sided effusion is seen. Flattening of the hemidiaphragms is noted on the lateral view suggesting the possibility of COPD. Postoperative changes in the right shoulder are only partially visualized. There is an old healed or partially healed left humeral neck fracture. Several old healed left-sided rib fractures are also noted. No acute rib fracture or pneumothorax. IMPRESSION: Emphysematous changes and a possible tiny right-sided pleural effusion. Electronically signed by: Ashish Johansen MD 02/01/2017 7:03 AM CDT
[2017-02-01] MEDS: IPRATROPIUM/ALBUTEROL 3 ML VIAL INH SCH ×5 (08:30→20:19)
[2017-02-01] MEDS: ENOXAPARIN SODIUM 40 MG/0.4 ML SYG SUBCU SCH (09:06)
[2017-02-01] MEDS: amLODIPine BESYLATE 5 MG TAB PO SCH (09:06)
[2017-02-01] MEDS: LISINOPRIL 10 MG TAB PO SCH (09:06)
--- NOTE | 2017-02-01 17:55 | PN ---
DATE: 02/01/17 SUPERVISING PHYSICIAN: Amilcar Casillas M.D. SUBJECTIVE: The patient is lying in bed. He is very depressed. His family will not bring his phone or atmospheric drier tender up here. His was in town and did not come visit him. His son took his truck and he has not heard from him since. He complains of right shoulder pain as well as depression. He says he gets short of breath with any exertion, but he is somewhat better since yesterday. No complaints of chest pain, nausea or vomiting. OBJECTIVE: VITAL SIGNS: He is afebrile, heart rate has gotten as high as 107 but is now 84. Blood pressure 144/61, respiratory rate 20, O2 sat is 94%. RESPIRATORY: Essentially clear to auscultation bilaterally. He is diminished at the bases. CARDIAC: Regular rate and rhythm. ABDOMEN: Soft, nondistended, non-tender. Bowel sounds are positive. EXTREMITIES: No cyanosis, clubbing or edema. NEUROLOGIC: He is awake, alert and oriented times three, but he is very depressed. LABORATORY: WBC 9.5, hemoglobin has dropped to 10.2 and hematocrit is down to 30.3, neutrophils are 88.4%. Electrolytes are basically within normal limits although his glucose is elevated up to 152. Preliminary sputum culture shows normal lara at 24 hours. Sputum gram stain shows a few epithelial cells, many WBCs and many gram positive cocci in pair and chains. Preliminary urine culture shows an insignificant colony count of mixed lara. RADIOLOGY: Chest x-ray per radiology interpretation shows emphysematous changes and a possible tiny right pleural effusion. All other labs and films have been reviewed via the EMR. ASSESSMENT: 1. Acute exacerbation of chronic obstructive pulmonary disease. 2. Hypoxia as noted on arterial blood gases with PO2 of 61. 3. History of chronic constipation. 4. Mild anemia. 5. Chronic obstructive pulmonary disease. 6. Hypertension. 7. History of multiple cerebrovascular accidents. 8. History of chronic headaches due to multiple head traumas in the past. 9. Depression. PLAN: We will continue present supportive care. The patient has been changed to inpatient status. He will continue with his Rocephin and Azithromycin as his clinical picture has improved as far as his chronic obstructive pulmonary disease. I have tapered down his steroids. For some reason, there are no blood cultures done but we will continue to monitor his other cultures as they become available. I have started him on some Cymbalta. Maybe that will help with his shoulder pain as well as the depression. Tomorrow I will order an ambulation study to make sure he is safe to go home, or if he needs oxygen at home we can get that. Otherwise we will continue to monitor him closely and follow as needed. Dr. Casillas is the collaborating physician available for consultation. [facility][id number] [facility]
[2017-02-01] MEDS: DULoxetine HCL 30 MG CAP PO SCH (18:39)
[2017-02-01] MEDS ORDERED: methylPREDNISolone SODIUM SUC 125 MG/2 ML VIAL ONE (19:56)
[2017-02-01] MEDS: SODIUM CHLORIDE 0.9% (FLUSH) 10 ML SYG IV SCH (20:28)
[2017-02-01] MEDS: ALPRAZolam 0.5 MG TAB PO SCH (20:28)
[2017-02-01] MEDS: PRAVASTATIN SODIUM 20 MG TAB PO SCH (20:28)
[2017-02-02] MEDS ORDERED: SODIUM CHL 0.9% 50ML MIN-BAG+ 50 ML IVPB ONE ×2 (00:30→19:53)
[2017-02-02] MEDS ORDERED: cefTRIAXone SODIUM 1 GM VIAL ONE ×3 (00:30→19:54)
[2017-02-02] MEDS ORDERED: SODIUM CHLORIDE 0.9% 250ML 250 ML ONE ×2 (00:30→19:53)
[2017-02-02] MEDS ORDERED: AZITHROMYCIN IV 500 MG VIAL IVPB ONE ×2 (00:31→19:55)
[2017-02-02] MEDS: cefTRIAXone SODIUM 1 GM in SODIUM CHL 0.9% 50ML MIN-BAG+ 50 ML IVPB SCH (02:08)
[2017-02-02] MEDS: SODIUM CHLORIDE 0.9% (FLUSH) 10 ML SYG IV PRN (02:09)
[2017-02-02] MEDS: methylPREDNISolone SODIUM SUC 125 MG/2 ML VIAL IV SCH ×3 (05:20→20:45)
[2017-02-02] MEDS: AZITHROMYCIN IV 500 MG in SODIUM CHLORIDE 0.9% 250ML 250 ML IVPB SCH (05:25)
[2017-02-02] MEDS: PANTOPRAZOLE SODIUM TAB 40 MG PO SCH (06:15)
[2017-02-02] MEDS: IPRATROPIUM/ALBUTEROL 3 ML VIAL INH SCH ×4 (09:12→21:07)
[2017-02-02] MEDS: DULoxetine HCL 30 MG CAP PO SCH (09:54)
[2017-02-02] MEDS: LISINOPRIL 10 MG TAB PO SCH (09:54)
[2017-02-02] MEDS: amLODIPine BESYLATE 5 MG TAB PO SCH (09:54)
[2017-02-02] MEDS: ENOXAPARIN SODIUM 40 MG/0.4 ML SYG SUBCU SCH (09:54)
[2017-02-02] MEDS: SODIUM CHLORIDE 0.9% (FLUSH) 10 ML SYG IV SCH ×2 (09:55→20:46)
--- NOTE | 2017-02-02 13:25 | PN ---
SUPERVISING PHYSICIAN: Amilcar Casillas MD DATE: 02/02/17 SUBJECTIVE: The patient is sitting up on the side of the bed. He feels somewhat better than he did yesterday. He has no complaints of chest pain, nausea, vomiting, diarrhea, constipation. His headache is somewhat improved, but he has had chronic headaches for many years. He continues to be depressed, but he knows I have given him medications and he thinks that will help. He is still very concerned that his family has not come to see him and is actually scared to go home. OBJECTIVE: VITAL SIGNS: Afebrile. Heart rate 70. Blood pressure 152/72. Respiratory rate 20. O2 saturation 90% on room air. LUNGS: Diminished lung sounds throughout, but otherwise clear to auscultation. CARDIAC: Regular rate and rhythm. ABDOMEN: Soft, nondistended, nontender. Bowel sounds are positive. EXTREMITIES: No cyanosis, clubbing or edema. NEUROLOGIC: Awake, alert and oriented times three. He continues to be depressed. LABORATORY: White count has elevated to 16.7, hemoglobin 11.6, hematocrit 34.6 , neutrophils 90.8. Electrolytes are basically within normal limits. Glucose 127. Preliminary sputum culture shows normal lara at 24 hours. Final sputum gram stain shows few epithelial cells, many white blood cells and many gram positive cocci in pairs and chains. His final urine culture shows insignificant colony count of mixed lara. All other labs and films have been reviewed via the EMR. ASSESSMENT: 1. Acute exacerbation of chronic obstructive pulmonary disease. 2. Hypoxia as noted on arterial blood gases with PO2 of 61. His oxygen saturations are maintaining in the low 90s on supplemental oxygen. 3. History of chronic constipation. 4. Mild anemia. 5. Chronic obstructive pulmonary disease. 6. Hypertension. 7. History of multiple cerebrovascular accidents. 8. History of chronic headaches due to multiple head traumas in the past. 9. Depression. PLAN: We will continue with present supportive care. We will continue with Cymbalta. He may need to have that adjusted to a higher dose in the next few days. We will continue with his present antibiotic regimen and continue to taper down his steroids and tomorrow he will be on oral prednisone. Shonda Shields , [employer], is going to see if will be interested in going to [facility] as that may help with some of the depression. I am awaiting the results of the ambulation study to make sure he does not need oxygen to go home. Otherwise, we anticipate discharge in the next day or so. We will continue to monitor the patient closely and follow as needed. Dr. Casillas is the collaborating physician and available for consultation. #[id number] [facility]
[2017-02-02] MEDS ORDERED: HALOPERIDOL LACTATE INJ 5 MG/ML VIAL IM ONE (19:35)
[2017-02-02] MEDS: ALPRAZolam 0.5 MG TAB PO SCH (20:45)
[2017-02-02] MEDS: PRAVASTATIN SODIUM 20 MG TAB PO SCH (20:45)
[2017-02-03] MEDS: cefTRIAXone SODIUM 1 GM in SODIUM CHL 0.9% 50ML MIN-BAG+ 50 ML IVPB SCH (02:05)
[2017-02-03 02:16] VITALS: TEMP 98.3
[2017-02-03] MEDS: IV SET AND CAP CHANGE INJ INJ SCH (05:36)
[2017-02-03] MEDS: AZITHROMYCIN IV 500 MG in SODIUM CHLORIDE 0.9% 250ML 250 ML IVPB SCH (05:36)
[2017-02-03] MEDS: traMADol HCL 50 MG TAB PO PRN (06:19)
[2017-02-03] MEDS: PANTOPRAZOLE SODIUM TAB 40 MG PO SCH (06:20)
[2017-02-03] MEDS ORDERED: predniSONE 20 MG TAB ONE (07:25)
[2017-02-03] MEDS: IPRATROPIUM/ALBUTEROL 3 ML VIAL INH SCH ×2 (08:30→13:10)
[2017-02-03] MEDS ORDERED: predniSONE 20 MG TAB PO SCH (09:00)
[2017-02-03] MEDS: LISINOPRIL 10 MG TAB PO SCH (09:02)
[2017-02-03] MEDS: SODIUM CHLORIDE 0.9% (FLUSH) 10 ML SYG IV SCH (09:03)
[2017-02-03] MEDS: ENOXAPARIN SODIUM 40 MG/0.4 ML SYG SUBCU SCH (09:03)
[2017-02-03] MEDS: amLODIPine BESYLATE 5 MG TAB PO SCH (09:03)
[2017-02-03] MEDS: DULoxetine HCL 30 MG CAP PO SCH (09:09)
[2017-02-03] MEDS ORDERED: MAGNESIUM HYDROXIDE 30 ML UD PO ONE (09:41)
--- NOTE | 2017-02-03 10:39 | RAD ---
Study: Frontal and Lateral Views of the Chest. Indication: copd Comparison: February 01, 2017 IMPRESSION: Cardiomegaly. Thoracic aorta tortuous and calcified. No failure. Emphysema. Tiny bilateral pleural effusions with mild basilar atelectasis, slightly progressed. No definite consolidation. Follow-up recommended. 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 Persistent wedge deformities of several mid thoracic vertebral bodies. Osteopenia. If this is a new finding, DEXA scan recommended as well as evaluation for possible osteoporosis treatment. Electronically signed by: Morales Ramírez MD 02/03/2017 10:38 AM CDT
[2017-02-03] MEDS ORDERED: INFLUENZA VIRUS VACC (ADULT) 0.5 ML SYG IM ONE (11:38)
[2017-02-03 13:46] VITALS: BP 136/71; O2SAT 95
[2017-02-04] MEDS ORDERED: AZITHROMYCIN 250 MG TAB PO ONE (06:00)
--- NOTE | 2017-02-05 10:42 | DS ---
SUPERVISING PHYSICIAN: Amilcar Casillas MD DISCHARGE DIAGNOSES: 1. Acute exacerbation of chronic obstructive pulmonary disease. 2. Hypoxia as noted on arterial blood gases with PO2 of 61. His oxygen saturations are in the low 90s on supplemental oxygen. 3. History of chronic constipation. 4. Mild anemia. 5. Chronic obstructive pulmonary disease. 6. Hypertension. 7. History of multiple cerebrovascular accidents. 8. History of chronic headaches with multiple head traumas in the past. 9. Depression. HISTORY OF PRESENT ILLNESS: Mr. Beckwith is an 89-year-old male patient who had some shortness of breath, coughing and upper respiratory-like symptoms for 24 hours. He became short of breath the day before admission and they called EMS and brought him to the Emergency Room. In the Emergency Room, he was audibly wheezing with respirations showing he was in distress. It was reported that his oxygen saturation had dropped as low as low as 70. He was given multiple breathing treatments and it was noted he does have a significant history of chronic obstructive pulmonary disease. He was actually in the hospital the previous week for constipation and some lower back pain as well as weakness. In the Emergency Room, his chest x-ray per radiologic interpretation showed rotated exam, otherwise no acute cardiopulmonary disease. His laboratory studies were basically within normal limits except for a glucose that was high at 129. Blood gas analysis showed a pH of 7.41 with bicarb 23, PO2 61, PCO2 of 38 with O2 saturation 94%. He had complained of an increase in purulent sputum and sputum culture was collected. He was given steroids as well as Rocephin and admitted directly to the hospital. LABORATORY: White count on admission was 8.5 but did go up to an elevation of 16.7. Prior to discharge it had gone down to 8.7. Hemoglobin and hematocrit were stable, on discharge was 10.6 and 30.7 with platelet count 172,000, differential did show a left shift. Blood gas analysis showed a mild hypoxemia with a pH of 7.41, PC02 of 38, P02 of 61, bicarb 23, saturation 94%. Chemistries showed normal electrolytes on admission with BUN 13, creatinine 0.92 , calcium 9.7, magnesium 2.1. Liver functions showed to be within normal limits as well as troponin of less than 0.02. BNP was normal at 53.2. Electrolytes remained within normal limits. Discharge potassium 3.8, BUN 23, creatinine 0.93. Urinalysis on admission was within normal limits. MICROBIOLOGY: Sputum culture showed normal lara at 48 hours. Gram stain on sputum showed many WBC, many gram positive cocci in pairs and chains. Urine culture showed instant colony count. RADIOLOGY: Chest x-ray in Emergency Department prior to admission per radiology interpretation showed rotated exam, otherwise no acute cardiopulmonary disease. He had several other x-rays completed and on morning of date of discharge showed 2-view chest per radiology interpretation showed emphysema with tiny bilateral pleural effusions with mild basilar atelectasis which has slightly progressed. No definite consolidations. HOSPITAL COURSE: Mr. Beckwith was admitted on 02/10/17 with concerns for exacerbation of chronic obstructive pulmonary disease as noted in the history of present illness. He was initiated on aggressive pulmonary hygiene and antibiotic therapy with Rocephin and azithromycin. He was also started on Solu- Medrol which was titrated down prior to discharge. It was felt that he had clinically improved in his symptomatology and was well enough to discharge home. He did show some episodes of tearfulness and was concerning for depression and was having some anxiety. Therefore, he was started on antidepressant initially that included Xanax and Cymbalta. PLAN: Mr. Beckwith was discharged to have close clinical followup with his primary care physician, , as scheduled on 02/09/17 at 10:15 AM. He was to have continued home health through [facility] in [place]. He was to resume his home medications and take new prescriptions as instructed. He was told to return to the hospital should he have any worsening or concerning symptoms. DISCHARGE MEDICATIONS: 1. Albuterol nebulizer as needed, #25. 2. Zithromax tablets 500 mg for 2 days. 3. Cefdinir 300 mg twice a day, #12. 4. Prednisone tapering dose 40 mg x3 days, 20 mg x3 days and 10 mg until all gone. DISCHARGE DIET: Regular as tolerated. ACTIVITIES: As tolerated with a walker. CONDITION AT DISCHARGE: Stable and improved. #[id number] [facility]
== END 2017-02-03 14:57 | disposition home health service (06) | DRG 192 ==
LOC: ER 00:35 → INTOOBSV 02:56 → OBSVTOIN 02:56 → MS 02:56 → UNDOADMOB 02:56 → MS 02-01 10:04 → OBSVTOIN 02-01 10:04 → INTOOBSV 02-01 10:04 → UNDODISIN 02-03 14:57
PROVIDERS: ADMIT Nurse Practitioner Acute Care; ATTEND Nurse Practitioner Acute Care
DX: J44.1 Chronic obstructive pulmonary disease with (acute) exacerbation (principal); R09.02 Hypoxemia; K59.09 Other constipation; D64.9 Anemia, unspecified; I10 Essential (primary) hypertension; F32.9 Major depressive disorder, single episode, unspecified; F41.9 Anxiety disorder, unspecified; H35.30 Unspecified macular degeneration; M54.9 Dorsalgia, unspecified; R51 Headache; Z96.653 Presence of artificial knee joint, bilateral; Z96.611 Presence of right artificial shoulder joint; Z86.73 Personal history of transient ischemic attack (TIA), and cerebral infarction without residual deficits; Z87.820 Personal history of traumatic brain injury; Z91.048 Other nonmedicinal substance allergy status; Z88.5 Allergy status to narcotic agent; Z79.899 Other long term (current) drug therapy

== ENCOUNTER → 2017-03-14 | Outpatient (CLI) | payer MEDICARE ==
--- NOTE | 2017-03-15 08:22 | US ---
EXAM DESCRIPTION: Carotid Duplex CLINICAL HISTORY: Carotid stenosis. COMPARISON: None Available. TECHNIQUE: Multiple grayscale, color, and spectral Doppler images of the bilateral carotid systems. FINDINGS: Severe atherosclerotic plaque is demonstrated in both carotid systems, most pronounced in both carotid bulbs. Up to approximately 60% area stenosis in the proximal right internal carotid artery on grayscale imaging. Up to 50% area stenosis in the proximal left internal carotid artery on grayscale imaging. All duplex waveforms and velocities are within normal limits on both sides. ICA/CCA ratios are normal. Both vertebral arteries demonstrate antegrade flow. The external carotid arteries are patent. IMPRESSION: 1. 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 2. Up to 50% area stenosis in the proximal left internal carotid artery. 3. Normal velocities and ratios throughout both carotid systems. Electronically signed by: Mike Rodriguez MD 03/15/2017 8:21 AM MENTAL HEALTH PROFESSIONAL
== END | disposition home or self-care (01) ==
LOC: US 09:40
PROVIDERS: ATTEND Psychiatry & Neurology Neurology
DX: I65.23 Occlusion and stenosis of bilateral carotid arteries (principal)